=== PATIENT | female | born 1940 | race African-American/Black ===

== ENCOUNTER 2017-12-06 15:52 | Emergency (ER) | payer OTHER ==
[~2017-12-06] VITALS: Ht 154.9 cm; Wt 98.0 kg
[~2017-12-06 15:52] MED LIST: ALDACTONE25 MG PO; CARDIZEM CD240 M1 PO; DYMISTA NASAL S23 GM NS; HYDROCODONE-APA1 TA1 PO; LOPRESSOR100 M1 PO; NEURONTIN300 MG PO; XARELTO10 MG PO
[2017-12-06] MEDS ORDERED: ASA5UEC PO (15:59)
[2017-12-06] MEDS ORDERED: NORCO 5-325 TA1 EACH PO (17:15)
== END 2017-12-06 17:37 | disposition home or self-care (01) ==
LOC: ER 15:52
DX: M79.661 Pain in right lower leg (principal); F17.210 Nicotine dependence, cigarettes, uncomplicated; I10 Essential (primary) hypertension; F41.9 Anxiety disorder, unspecified; E11.9 Type 2 diabetes mellitus without complications; Z90.49 Acquired absence of other specified parts of digestive tract; Z90.89 Acquired absence of other organs; Z98.890 Other specified postprocedural states